=== PATIENT | female | born 2000 | race Hispanic/Latino ===

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

== ENCOUNTER 2022-04-07 12:34 | Emergency (ER) | payer MEDICAID ==
[~2022-04-07] VITALS: Ht 152.4 cm; Wt 56.7 kg
[2022-04-07 12:35] VITALS: BP 127/73
[2022-04-07 13:28] LABS: APPEARANCE,URINE CLEAR (CLEAR); BILIRUBIN,URINE NEGATIVE (NEGATIVE); COLOR,URINE YELLOW (YELLOW); GLUCOSE, URINE (UA) NEGATIVE (NEGATIVE); KETONES,URINE NEGATIVE (NEGATIVE); LEUKOCYTE ESTERASE ,URINE NEGATIVE (NEGATIVE); NITRATE,URINE NEGATIVE (NEGATIVE); OCCULT BLOOD,URINE TRACE-INTACT (NEGATIVE); PROTEIN,URINE TRACE mg/dL (NEGATIVE); UROBILINOGEN,URINE 0.2 mg/dL (0.2-1.0)
[2022-04-07 13:30] LABS: HCG,QUAL RESULT NEGATIVE (NEGATIVE)
[2022-04-07 14:22] LABS: BACTERIA,URINE Rare /HPF (None Seen); MUCUS,URINE Moderate LPF (None Seen); SQUAMOUS EPITHELIAL CELL,UR Moderate /HPF (0-2); WBC,URINE 0-1 /HPF (0-1)
[2022-04-07] MEDS ORDERED: CLINDAMYCIN 150 MG CAP PO ONE (14:30)
[2022-04-07] MEDS ORDERED: MUPI22OI2 TP (14:40)
[2022-04-07] MEDS ORDERED: CLIN-141 PO (14:40)
== END 2022-04-07 14:51 | disposition home or self-care (01) ==
LOC: EDH 12:34
DX: L01.00 Impetigo, unspecified (principal)
CPT/HCPCS: 81001; 81025